=== PATIENT | male | born 1970 | race Caucasian/White ===

== ENCOUNTER 2024-09-18 17:14 | Emergency (ER) | payer BC, SELFPAY ==
[2024-09-18 17:18] VITALS: BP 151/99
--- NOTE | 2024-09-18 18:26 | EDRN ---
Patient with c/o left elbow pain. Patient stated that he was moving his trash can and it rolled away causing him to fall onto his left elbow. Patient stated that his elbow and upper arm hurt when he has his arm in a flexed position. Patient stated
that the pain is better when his arm is hanging. Patient he has slight numbness in his arm. Denies hitting his or pain anywhere else. +2 radial pulse. Brisk cap refill.
--- NOTE | 2024-09-18 18:29 | ED.GENMED ---
History of Present Illness
General
Chief Complaint: Musculo-Skeletal Complaint
Source: patient
Exam Limitations: none
Time Seen by Provider: 09/18/24 18:01
History of Present Illness
History of Present Illness:
54yo left hand dominant male with a history of hypertension presenting for evaluation of a left elbow injury. Patient was pushing something this morning around 7am when he tripped and landed on his left elbow. There was no head strike or LOC.
Patient has had persistent pain in his left elbow throughout the day today. Pain is located in the olecranon and L triceps region. No paresthesias. No other concerns.
Past History
Past History
ED Past Medical History: HTN
ED Past Surgical History: Orthopedic
Social History
Tobacco: Non-smoker
Alcohol: None
Drug: None
Personal: Single
Living: with family
Employment: Employed
Family History
Family History: Other (nonsig.)
Phy Exam
General Physical Exam
General Presentation: well appearing and no apparent distress
General age: appears stated age
General Skin: warm and dry
General Habitus: normal
General Mental: alert
Neurological Exam
Neurological Exam: alert
Musculoskeletal Exam
Musculoskeletal Exam: other (L elbow: Normal to inspection. No skin changes or deformity. No defects in musculature. +Tenderness to olecranon and triceps. Pain elicited with elbow flexion. Able to extend fully. 2+ radial pulse. Motor function intact
in radial, ulnar, and median nerve distributions. )
Skin Exam
Skin Exam: normal color and warm/dry
Psychiatric Exam
Psychiatric Exam: normal mood/affect
Course
Orders/Labs/Results
Orders:
Orders
09/18/24 17:20
CR Elbow - Left Min 3 Views Urgent
Comment:
Reason For Exam: injury
Vital Signs
Initial and Last Documented VS:
Initial Vital Signs
Temp Pulse Resp BP Pulse Ox
98.2 F 91 20 151/99 98
09/18/24 17:18 09/18/24 17:18 09/18/24 17:18 09/18/24 17:18 09/18/24 17:18
Last Documented Vital Signs
Temp Pulse Resp BP Pulse Ox
98.4 F 97 18 119/85 96
09/18/24 19:03 09/18/24 19:03 09/18/24 19:03 09/18/24 19:03 09/18/24 19:03
MDM/Problems Addressed
Differential Diagnosis Includes:
54yoM here with L elbow pain after falling this morning. No deformity on exam. ROM is normal although pain is elicited with flexion. LUE is neurovascularly intact. Differential diagnosis includes: fracture, dislocation, sprain, soft tissue injury
X-rays of elbow obtained which are negative for fractures. Imaging does show calcifications along the medial and lateral epicondyles which are likely a sequelae of tendinopathy. Supportive care discussed. Advised f/u with orthopedics if symptoms
persist.
*Critical Care Note
Total Time (30-74mins, 75-104mins- exclusive of procedures): Not Applicable
ED Attending Note
-
Portions of this chart may have been created with voice recognition software.� Occasional wrong word or��sound alike� substitutions may have occurred due to the inherent limitations of voice recognition software.
Discharge Plan
Departure
Patient Disposition: Home (Routine Discharge)
Date of Disposition: 09/18/24
Time of Disposition: 18:40
Patient with high blood pressure during this ER visit?: Yes
Discharge Problem:
Injury of left elbow
Instructions: Muscle, joint, and bone pain - Discharge instructions
Prescriptions:
No Action
Lisinopril
1 tab PO DAILY
Patient Comments:
pt. unsure of mg
naltrexone-bupropion [Contrave] 1 EACH tablet extended release
2 ea PO BID
Paxlovid 300 mg (150 mg x 2)-100 mg tablets,dose pack
See Rx Instructions .ROUTE .COMPLEX Qty: 30 0RF
Rx Instructions:
take TWO 150 mg tablets of nirmatrelvir with ONE 100 mg tablet of ritonavir twice daily for 5 days
Referrals:
Mohit Le DO [Family Provider] -
Pablo Siddiqui MD [Active] -
Activity Restrictions/Additional Instructions:
Rest, ice, compress, and elevate your elbow. Take Tylenol 650 mg and ibuprofen 600 mg every 6 hours as needed.
Please follow-up with orthopedics.
Interventions
Interventions:
*Risk Screen - Suicide Last Done: 09/18/24 18:02
*General Assessment Last Done: 09/18/24 17:18
*Neglect/Abuse Screening Last Done: 09/18/24 18:02
*ED- Fall Risk Assessment Last Done: 09/18/24 18:02
*Nursing Disposition Last Done: 09/18/24 19:03
ED-Musculoskeletal Assessment Last Done: 09/18/24 18:02
Discharge Date and Time
Discharge Date/Time: 09/18/24 19:04
Print Language: ANDORRAN
--- NOTE | 2024-09-18 19:01 | EDRN ---
Reviewed discharge instructions with patient. Verbalized understanding. Ambulated with steady gait to the lobby.
[2024-09-18 19:03] VITALS: BP 119/85
== END 2024-09-18 19:04 | disposition home or self-care (01) ==
LOC: EMR 17:14
PROVIDERS: EMERGENCY PHYSICIAN Emergency Medicine; FAMILY PHYSICIAN Internal Medicine
DX: S59.902A Unspecified injury of left elbow, initial encounter (principal); W01.0XXA Fall on same level from slipping, tripping and stumbling without subsequent striking against object, initial encounter; I10 Essential (primary) hypertension
CPT/HCPCS: 99283; 73080

== ENCOUNTER 2024-10-10 06:24 | Day surgery (SDC) | payer BC, SELFPAY | END 2024-10-10 12:52 | disposition home or self-care (01) | LOC: GI 06:24 | PROVIDERS: ATTENDING PHYSICIAN Internal Medicine Gastroenterology | DX: Z12.11 Encounter for screening for malignant neoplasm of colon (principal); D12.3 Benign neoplasm of transverse colon; D12.4 Benign neoplasm of descending colon; D12.5 Benign neoplasm of sigmoid colon; K57.30 Diverticulosis of large intestine without perforation or abscess without bleeding; K62.1 Rectal polyp; Z86.0101 Personal history of adenomatous and serrated colon polyps | CPT/HCPCS: 45385; 45380; 88305 ==

== ENCOUNTER → 2025-05-08 19:37 | Outpatient (REF) | payer BC, SELFPAY | LOC: PAVMRI 19:37 | PROVIDERS: ATTENDING PHYSICIAN Physician Assistant Surgical; FAMILY PHYSICIAN Internal Medicine | DX: M54.16 Radiculopathy, lumbar region (principal); M54.50 Low back pain, unspecified | CPT/HCPCS: 72148 ==